=== PATIENT | female | born 1995 | race Caucasian/White ===

== ENCOUNTER 2018-03-21 08:47 | Inpatient (IN) | payer BC, OTHER ==
[~2018-03-21] VITALS: Ht 167.6 cm; Wt 56.7 kg
[2018-03-21] MEDS ORDERED: DICYCLOMINE HCL 20 MG TABLET PO PRN (11:30)
[2018-03-21] MEDS ORDERED: ONDANSETRON ODT 4 MG TAB.RAPDIS SL PRN (11:30)
[2018-03-21] MEDS ORDERED: MIRALAX 17 GM POWD.PACK PO PRN (11:30)
[2018-03-21] MEDS ORDERED: METHOCARBAMOL 750 MG TABLET PO PRN (11:30)
[2018-03-21] MEDS ORDERED: LOPERAMIDE HCL 2 MG CAPSULE PO PRN ×2 (11:30)
[2018-03-21] MEDS ORDERED: MAG HYDROX/AL HYDROX/SIMETH 30 ML LIQUID UDC PO PRN (11:30)
[2018-03-21] MEDS ORDERED: ONDANSETRON 4 MG/2 ML VIAL IM PRN (11:30)
[2018-03-21] MEDS ORDERED: ACETAMINOPHEN 325 MG TABLET PO PRN (11:30)
[2018-03-21] MEDS ORDERED: BUPRENORPHINE HCL 2 MG TAB.SUBL SL PRN (11:30)
[2018-03-21] MEDS ORDERED: CLONIDINE HCL 0.1 MG TABLET PO PRN (11:30)
[2018-03-21 12:31] LABS: *URINE HCG, QUAL NEGATIVE (NEGATIVE)
[2018-03-21 12:45] LABS: ALANINE AMINOTRANSFERASE 17 U/L (14-59); ALKALINE PHOSPHATASE 93 U/L (50-136); ASPARTATE AMINOTRANSFERASE 15 U/L (15-37); BILIRUBIN,TOTAL 0.4 mg/dL (0.2-1.0); CARBON DIOXIDE 30 mmol/L (21-32); CHLORIDE 103 mmol/L (98-107); CREATININE 0.8 mg/dL (0.6-1.3); GLUCOSE 72 mg/dL (74-106); MAGNESIUM 1.8 mg/dL (1.8-2.4); POTASSIUM 3.7 mmol/L (3.5-5.1); TOTAL PROTEIN, SERUM 7.3 g/dL (6.4-8.2); UREA NITROGEN, BLOOD 8 mg/dL (7-18)
[2018-03-21 12:49] LABS: BASOPHILS # (AUTO) 0.1 K/uL (0.0-8.0); BASOPHILS % (AUTO) 0.9 % (0.0-2.0); EOSINOPHILS # (AUTO) 0.6 K/uL (0.0-0.7); EOSINOPHILS % (AUTO) 9.4 % (0.0-7.0); HEMATOCRIT 39.8 % (31.2-41.9); HEMOGLOBIN 12.9 g/dL (10.9-14.3); LYMPHOCYTES # (AUTO) 1.8 K/uL (20.0-40.0); MEAN CORPUSCULAR HEMOGLOBIN 26.9 uug (24.7-32.8); MEAN CORPUSCULAR HGB CONC 32 g/dL (32.3-35.6); MEAN CORPUSCULAR VOLUME 82.8 fL (75.5-95.3); MONOCYTES # (AUTO) 0.6 K/uL (2.0-10.0); MONOCYTES % (AUTO) 9.9 % (0.0-11.0); NEUTROPHILS % (AUTO) 49.8 % (38.5-71.5); PLATELET COUNT (AUTO) 324 K/uL (179-408); WHITE BLOOD COUNT (AUTO) 5.9 K/uL (3.8-11.8)
[2018-03-21 12:52] LABS: THYROID STIMULATING HORMONE 1.226 mIU/mL (0.358-3.740)
[2018-03-21 12:56] LABS: *AMPHETAMINE, URINE POSITIVE (NEGATIVE); *BARBITURATE, URINE NEGATIVE (NEGATIVE); *CANNABINOID, URINE NEGATIVE (NEGATIVE); *COCCAINE, URINE NEGATIVE (NEGATIVE); *OPIATE, URINE POSITIVE (NEGATIVE); *PHENCYCLIDINE SCREEN,URINE NEGATIVE (NEGATIVE)
[2018-03-21 13:20] LABS: ETHANOL < 3 MG/DL (0-0)
[2018-03-21] MEDS ORDERED: LORAZEPAM 1 MG TABLET PO PRN ×2 (14:30)
[2018-03-21] MEDS ORDERED: LORAZEPAM 2 MG/1 ML VIAL IM PRN (14:30)
--- NOTE | 2018-03-21 15:00 | NUR ---
ADMISSION NOTE Pt is a 22 year old transgender female who identifies as a male , admitted on 03/21/2018 at 1230 for Benzo, Opiate and meth Dependence and medically supervised withdrawals. Pts skin and body check completed, no contraband found, pt has multiple acne on face and body pt has a laceration on right thigh 6cm picture taken and placed in chart wound consult evaluation ordered. Multiple self inflicted lacerations on arms, Pt states he inflicts the lacerations to deal with and due to anxiety 2 weeks ago, pt denies attempting suicide and currently denies any suicidal ideations or thoughts of self harm. Pt awake, alert, oriented x 4, gait steady, pt is ambulatory without assistance. Pt weights 125 pounds and his height is 56. Denies any history of seizures. Pt escorted to room 307 where the rest of assessment was completed. Pt is primary source of information, information consistent, speech coherent. Pt brought testosterone injection medication from home with 5 syringes and needles for the injection. Pt refused PNA and influenza Vaccinations stating that he will receive it somewhere else. Pt states that he has a PCP by the name of . Pt requested to be full code, regular diet on fall and seizure precautions, Pt states that he is allergic to PCN. His last BM was on 03/21/2018. Pt states that he lives in a house with his mother. Pt stated that he smokes 5 cigarettes a day. Pt denies being admitted to a hospital in the past 30 days, Pt is not a candidate for MRSA. Pts initial vital signs are BP: 132/79, Temp: 98.5, Pulse: 85 SPO2: 98% RR:18 and states that he has 0/10 pain. Pts initial CIWA was a 10 COWS 10. Pt reports PMH of Anxiety and Depression. Pts longest sobriety lasted 1.5 years which was from [id number]. Pt stated that he does not attend AA meetings. Pt denies any suicidal or homicidal ideations. Substance use Hx: 1. Heroin (smoking) Pt stated he first used heroin at the age of 15 y/o. Pt reports taking 0.5 grams daily for the past 2 weeks by smoking. Last used 2 days ago 2. Xanax: Pt reported first taking Xanax in the year at age 15. Pt reports taking up to 1mg of Xanax daily for the past 2 weeks. He last took Xanax a day ago. 3. Meth: Pt stated he first used Meth at the age of 18 y/o. Pt reports taking 0.5 grams daily for the past 2 weeks by smoking. Last used 2 days ago Pt cooperative, appears fidgety, reports moderate anxiety. Educated on relaxation techniques (deep breathing) pt verbalized understanding. Pt denies SI/HI at this time, denies hallucinations. Skin warm and moist from sweat, color pink, consistent throughout the body. Eyes PEERLLA, tremors noted and felt. All extremities with full ROM. Lung sounds clear bilaterally, no cough present, pt denies SOB. Heart rate regular. Cap refill <3 sec. No edema noted. Abdomen soft, round, bowel sounds active x 4, non tender. Pt denies urinary difficulties, urine was provided and sent to lab. Pt oriented to unit, room, equipment, shown how to use call light, provided returned demonstration. Fall precautions in place. Side rails up x2, call light within reach, bed locked in low position. MD contacted and aware of patients condition. All admitting orders have been placed.
[2018-03-21 16:00] VITALS: BP 113/73
--- NOTE | 2018-03-21 16:50 | NUR ---
PRN MEDICATIONS Pt c/o Anxiety presented with agitation and restlessness requested something for relief, non-pharmacological techniques interventions provided x3 and were not effective. Pt's COWS 18 CIWA 17 PRN Ativan 2mg PO and Subutex 4mg Sublingual administered educated pt about s/e of medication and when to contact nurse. all needs met, all safety measures in place, will continue to monitor.
[2018-03-21] MEDS ORDERED: TEST200V3 IM (17:07)
[2018-03-21] MEDS ORDERED: ACET-73 PO (17:07)
[2018-03-21] MEDS ORDERED: Melatonin PO (17:07)
--- NOTE | 2018-03-21 17:50 | NUR ---
PRN REASSESSMENT Medication effective pt reported feeling "Much better" pt also stated "Now i can lay down and sleep a little after taking the medication pt educated to contact nurse in case withdrawals return, and if pt experiences any adverse effects of the medication, all needs met will continue to monitor patient
--- NOTE | 2018-03-21 19:21 | NUR ---
End Of Shift 304 Report given to slot shift supervisor nurse, plan of care reviewed, Vital signs monitored Q hours. Withdrawal symptoms were closely monitored. Initial CIWA 10 COWS 10 upon admission. Patient encouraged adequate PO fluid intake as tolerated. Patient presented with tremors sweats, irritability, flushed face and anxiety during the day. Pt received PRN Ativan 2mg and Subutex 4mg . Last CIWA 17 COWS 18. Pt is on PRN medications. Per patient Subutex and Ativan has been helping her with her withdrawal symptoms. Pt ate all of her meals. Patient encouraged to attend all group therapies/sessions to learn new coping skills to recent relapse, patient denies SI/HI. All safety measures in place, bed in lowest locked position, call light within reach. All needs met and attended.
[2018-03-21 20:00] VITALS: BP 114/70
--- NOTE | 2018-03-21 20:00 | NUR ---
Start of Shift Pt is a 22 year old transgender female who identifies as a male, admitted for Opiate/Benzo withdrawal. Upon assessment, pt presents in room, in bed with lights off, and television off. Pt has limited snacks on bedside table. Pt has poor eye contact, appears worried with flat affect. While completing assessment, pt warms up to conversation and begins to smile. Pt reports decreasing body aches, skins is noted to be flushed with reports of nasal stuffiness. Safety measures in place, will continue to monitor.
[2018-03-21] MEDS: SERTRALINE HCL 50 MG TABLET PO SCH (20:16)
[2018-03-22] VITALS: BP 112/63
--- NOTE | 2018-03-22 | NUR ---
COWS/CIWA Deferred - pt is noted to be sleeping, eyes closed respirations even/unlabored. CIWA/COWS assessment deferred d/t pt sleeping - to assess while pt is awake as ordered. BP 112/63, pulse 78, resp 17, spo2 97%, temp 98.[address], will continue to monitor
[2018-03-22 04:00] VITALS: BP 109/63
--- NOTE | 2018-03-22 04:00 | NUR ---
COWS/CIWA Deferred - pt is noted to be sleeping, eyes closed respirations even/unlabored. CIWA/COWS assessment deferred d/t pt sleeping - to assess while pt is awake as ordered. BP 109/63, pulse 62, resp 17, spo2 98%, temp 98.1, Safety measures in place, will continue to monitor
[2018-03-22 06:07] LABS: HEPATITIS B SURFACE AG Negative (Negative)
--- NOTE | 2018-03-22 07:00 | NUR ---
End of Shift Pt is a 22 year old transgender female who identifies as a male, admitted for Opiate/Benzo withdrawal. During shift, pt remained in room, in bed with lights off, and television off. Pt read the books that were present at bedside. Pt has limited snacks on bedside table. Pt has poor eye contact, however warms up to conversations. Pt reported decreasing body aches, skins is noted to be flushed with reports of nasal stuffiness. COWS 9 and CIWA 9 pt offered Ativan and Subutex, however pt refused, states, "I don't need it now. I feel better for tonight". Pt educated regarding benefits of medications, pt verbalized understand. Pt denies SI/HI, Pt slept for 5 hours, intake of 600 ml PO, voids x1. Safety measures in place, Endorsed to day shift nurse.
--- NOTE | 2018-03-22 07:30 | NUR ---
START OF SHIFT Pt is a 22 yr old transgender male, Pt was admitted on 03/21/18 for Opiate and Benzo withdrawal and is on PRN for s/s of w/d. Received report from car shifter nurse. No PRN's were given during the night. Pt slept for 5 hrs. Last COWS score was 9 and CIWA score was 9 during the night. Pt is currently in bed sleeping with respirations even and unlabored. Skin is warm and dry to touch. Pt is on fall and seizure precautions. Safety precautions observed. Call light is within reach. Will continue to monitor.
[2018-03-22 08:00] VITALS: BP 104/53
--- NOTE | 2018-03-22 08:00 | NUR ---
CIWA AND COWS SCORE DEFERRED Pt is currently in bed sleeping with respirations even and unlabored. COWS and CIWA is deferred at this time. Will continue to monitor.
[2018-03-22] MEDS ORDERED: TUBERCULIN,PURIF.PROT.DERIV. 5 TU/0.1 ML TEST ID ONE (09:00)
[2018-03-22 12:00] VITALS: BP 104/52
--- NOTE | 2018-03-22 13:52 | NUR ---
PRN GIVEN Pt is c/o headache, anxiety and nausea. Pt is observed with restless legs. CIWA assessment complete with a score of 11. Ativan 1mg PO PRN was given as ordered. Encouraged increase fluid intake. Will continue to monitor.
[2018-03-22] MEDS ORDERED: BUPRENORPHINE HCL 2 MG TAB.SUBL SL PRN ×2 (14:00)
--- NOTE | 2018-03-22 14:20 | NUR ---
PRN GIVEN Pt c/o anxiety, agitation, chills, nausea, abdominal cramping and muscle aches. pt is observed with restless legs. COWS score was 13. Subutex 4mg SL PRN was given for s/s of w/d. medication was tj well. Encouraged increase fluid intake. Will continue to monitor.
--- NOTE | 2018-03-22 15:00 | NUR ---
PRN RE-ASSESSMENT Subutex 4mg SL PRN and Ativan 1mg PO PRN was effective. Pt denied any headache or nausea. Pt continue to be observed with anxiety m/b difficulty staying still. COWS score was 8 and CIWA score was 5. Encoruaged increase fluid intake. Will continue to monitor.
[2018-03-22 16:00] VITALS: BP 105/64
--- NOTE | 2018-03-22 19:08 | NUR ---
END OF SHIFT Pt is a 22 yr old transgender male, AA&Ox4. Pt was admitted on 03/21/18 for Opiate and Benzo withdrawal and is on PRNs for s/s of w/d. Pt has been noted with increase fatigue and remained in the room throughout the day. Pt refused to attend group. Pt c/o increase anxiety, agitation, abdominal cramping, nausea, loss of appetite, muscle aching and headache during the day and was given Subutex 4mg SL PRN and Ativan 1mg PO PRN for COWS of 13 and CIWA of 11. Medication was effective. Last COWS score was 6 and CIWA score was 5 at 1600. Pt was encouraged increase fluid intake for hydration. Safety precautions observed. Call light is within reach. Endorsed to semiconductor packages leak tester nurse to continue to monitor.
--- NOTE | 2018-03-22 19:15 | NUR ---
Start of Shift Note: Received patient in bed awake, alert & oriented x4. Patient is a 22 y.o male admitted for medically supervised withdrawal from Heroin & Xanax use. He has a flat affect, anxious and depressed mood. Patient presented with moist/clammy skin, stomach cramps, fine tremors, & he reports moderate headache. Patient currently has no taper and has PRN's available to manage s/s of withdrawal. Pt received PRN Subutex 4mg & Ativan 1mg @ 1330 and was effective per report. Last COWS 6 CIWA 5. Continue to encourage pt to increase fluid intake as tolerated. Will continue to encourage participation in group therapy to prevent relapse. Educated patient of current plan of care for the night and medication regimen. Safety precaution in place. Bed locked in lowest position. Both side rails up. Call light within pt's reach. Will continue to monitor patient.
[2018-03-22 20:00] VITALS: BP 116/66
[2018-03-22] MEDS: IBUPROFEN 600 MG TABLET PO PRN (20:56)
[2018-03-22] MEDS: GABAPENTIN 300 MG CAPSULE PO SCH (20:56)
[2018-03-22] MEDS: SERTRALINE HCL 50 MG TABLET PO SCH (20:56)
[2018-03-22] MEDS: CLONIDINE HCL 0.1 MG TABLET PO SCH (20:56)
--- NOTE | 2018-03-22 20:56 | NUR ---
PRN Motrin Patient complained of 5/10 headache. PRN Motrin administered as ordered. Will monitor for effectiveness of medication.
--- NOTE | 2018-03-22 21:56 | NUR ---
PRN Reassessment PRN medication effective. Pt verbalized decreased in headache from 5/10 to 2/10 after medication administration. Patient in bed and appears comfortable. Will continue to monitor patient.
--- NOTE | 2018-03-23 07:23 | NUR ---
End of Shift Note: Continue to closely monitor patient. Patient still asleep at this time. Pt remains alert & oriented x4. Patient remained in his room most of the night and noted to be isolative and withdrawn. He presented with moist/clammy skin, anxiety, stomach cramps, fine tremors & moderate headache. He was medicated with Motrin for headache and was effective. He has no ongoing taper and has PRN's available to manage s/s of withdrawal. Last COWS is 6 CIWA 9. Pt remains compliant with medications, treatment and diet regimen. Continue to encourage pt to socialize with other patients and to increase activity. Encourage to increase fluid intake as well as tolerated. Vitals were monitored and noted WNL. Non pharmacological intervention utilized. Pt slept intermittently for a total of 7 hours. Fluid intake: 355 ml, Voided 2x with no bowel movement. All needs attended & met. Safety measures in place. Will endorse pt to day shift nurse.
--- NOTE | 2018-03-23 07:45 | NUR ---
START OF SHIFT PT IS A 22 Y/O M ADMITTED ON 03/21/18 FOR MEDICALLY SUPERVISED XANAX, HEROIN, AND METH WITHDRAWALS. PT HAS PRN SUBUTEX AND ATIVAN FOR MANAGEMENT OF WIITHDRAWALS. LAST COWS 6 AND CIWA 9. PT IS LAYING IN BED WITH EYES CLOSED SLEEPING, RESPIRATIONS EVEN AND UNLABORED. PT HAS BEEN SLEEPING FOR 7 HRS AND HAS BEEN GIVEN IBUPROFEN PRN FOR HEADACHE. SIDE RAILS UPX2, BED IN LOW POSITION. CALL LIGHT WITHIN REACH. SAFETY MEASURES IN PLACE. WILL CONTINUE TO MONITOR.
[2018-03-23 08:00] VITALS: BP 97/61
[2018-03-23] MEDS: GABAPENTIN 300 MG CAPSULE PO SCH ×2 (09:46→20:21)
--- NOTE | 2018-03-23 09:46 | NUR ---
PRN ROBAXIN 750 MG PO PRN GIVEN. PT IS IN BED, WITH ONE ARM OVER THE FACE, POOR EYE CONTACT, C/O GENERALIZED BODY ACHES 04/17. REFUSED TO HAVE OTHER PRN MEDS AT THIS TIME.
[2018-03-23] MEDS: CLONIDINE HCL 0.1 MG TABLET PO SCH ×2 (09:49→20:27)
--- NOTE | 2018-03-23 10:46 | NUR ---
REASSESSMENT PT IS LAYING IN BED WITH EYES CLOSED AND SLEEPING. SAFETY MEASURES IN PLACE. WILL CONTINUE TO MONITOR.
[2018-03-23 12:00] VITALS: BP 90/46
[2018-03-23] MEDS ORDERED: LORAZEPAM 1 MG TABLET PO PRN ×2 (14:15)
[2018-03-23] MEDS ORDERED: BUPRENORPHINE HCL 2 MG TAB.SUBL SL PRN ×2 (14:15)
[2018-03-23 16:00] VITALS: BP 87/57
--- NOTE | 2018-03-23 19:15 | NUR ---
Start of Shift Note: Received patient in bed awake, alert & oriented x4. Patient is a 22 y.o male, admitted for medically supervised withdrawal from Heroin & Xanax use. He has a flat affect, speech is soft, evasive and has poor eye contact. Patient presented with anxiety, moist/clammy skin, chills, & fine tremors,. Patient currently has no taper and has PRN's available to manage s/s of withdrawal. Pt received PRN Robaxin for body aches during day shift and was effective per report. Last COWS 8 CIWA 10. Patient remains isolative in his room during the day. Continue to encourage pt to socialize with other patients and to increase fluid intake as tolerated. Will continue to encourage participation in group therapy to prevent relapse. Educated patient of current plan of care for the night and medication regimen. Safety precaution in place. Bed locked in lowest position. Both side rails up. Call light within pt's reach. Will continue to monitor patient.
--- NOTE | 2018-03-23 19:50 | NUR ---
END OF SHIFT PT HAS BEEN ISOLATIVE IN ROOM AND WITHDRAWN DURING SHIFT. PT SLEPT IN MOST OF THE DAY. PT HAS BEEN GIVEN ROBAXIN 750 MG PO PRN AND TOLERATED WELL. PT HAS REFUSED OTHER COMFORT MEDS DURING SHIFT. ENCOURAGED PT TO INCREASE CONSUMPTION OF FLUIDS TOLERATED TO PROMOTE HYDRATION. LAST COWS 8 AND CIWA 10. FLUID INTAKE 850 ML, VOIDED X5, BM 0. SAFETY MEASURES IN PLACE. ENDORSEMENT GIVEN TO WEBSITE ADMIN NURSE.
[2018-03-23 20:00] VITALS: BP 92/56
[2018-03-23] MEDS: SERTRALINE HCL 50 MG TABLET PO SCH (20:21)
--- NOTE | 2018-03-23 20:21 | NUR ---
PRN Ativan Patient presented with restlessness, anxiety, irritability, clammy skin & fine tremors. CIWA 8 noted at this time. PRN Ativan 1mg administered as ordered. Safety measures in place. Will monitor for effectiveness of medications.
--- NOTE | 2018-03-23 21:21 | NUR ---
PRN Reassessment Patient in bed and verbalized decreased in anxiety & agitation. Patient in bed and appears calm & comfortable at this time. No complaints of pain at this time. Safety measures in place. Will continue to monitor patient.
--- NOTE | 2018-03-23 21:31 | NUR ---
PRN Toradol & Phenergan Patient complained of nausea, 8/10 generalized body aches & moderately severe headache. Patient is restless in bed with facial grimacing noted. PRN Phenergan PO and TOradol IM administered at left deltoid as ordered. Pt tolerated medications well. Safety measures in place. Will monitor effectiveness of medications. Addendum: 03/24/18 at 0327 by KIA FULLER RN DISREGARD NOTE: WRONG PATIENT
--- NOTE | 2018-03-24 | NUR ---
Vitals/COWS/CIWA Deferred Patient in bed with eyes close. Patient refused vitals at this time. Vitals/COWS/CIWA deferred to assess if pt is awake as ordered. Respiration even & unlabored at this time. Safety measures in place. Will continue to monitor patient.
--- NOTE | 2018-03-24 04:00 | NUR ---
Vitals/COWS/CIWA Deferred Patient remained asleep in bed. Patient refused vitals at this time. Vitals/COWS/CIWA deferred to assess if pt is awake as ordered. Respiration even & unlabored at this time. Safety measures in place. Will continue to monitor patient.
--- NOTE | 2018-03-24 07:14 | NUR ---
End of Shift Note: Continue to closely monitor patient. Pt remained isolative and withdrawn in his room throughout the shift. He continues to present with a flat affect, anxious & depressed mood, he complained of anxiety, sweating & intermittent chills during my shift. He was medicated with PRN Ativan 1mg for a CIWA of 8 and was effective. He has no ongoing taper and has PRN's available to manage s/s of withdrawal. Continue to encourage pt to socialize with other patients and to increase activity. Encourage to increase fluid intake for hydration. Vitals were monitored and noted WNL. Non pharmacological intervention utilized. Pt slept intermittently for a total of 5 hours. Fluid intake: 1000 ml, Voided 4x with no bowel movement. All needs attended & met. Safety measures in place. Will endorse pt to day shift nurse.
--- NOTE | 2018-03-24 07:30 | NUR ---
START OF SHIFT Pt 22 y/o female transgendering male admitted for opiate/ meth/ benzo withdrawal. Pt received in room on bed with eyes closed resting, but easily arousable to name. Pt alert and oriented to name, place, and time. [place]. Skin warm and dry to touch. Respirations even and unlabored. Bilateral hand tremors noted. Pt appears disheveled. Clothes and food wrapping scattered throughout the room. Encouraged to maintain hygiene. Pt appears with flat affect. It was reported that pt slept for 5 hours last night. Pt is on a prn ativan and also prn subutex. Bed on lowest position with side rails x2 up for safety. Call light within reach.
[2018-03-24 08:00] VITALS: BP 96/46
[2018-03-24] MEDS: GABAPENTIN 300 MG CAPSULE PO SCH ×2 (08:29→20:21)
[2018-03-24] MEDS: CLONIDINE HCL 0.1 MG TABLET PO SCH ×2 (08:55→20:58)
[2018-03-24 12:00] VITALS: BP 89/47
[2018-03-24] MEDS ORDERED: METH-406 PO (15:53)
[2018-03-24] MEDS ORDERED: DIPH50CA37 PO (15:53)
[2018-03-24] MEDS ORDERED: DICY20TA28 PO (15:53)
[2018-03-24] MEDS ORDERED: HYDR-3895 PO (15:53)
[2018-03-24] MEDS ORDERED: CLON0.1T14 PO (15:53)
[2018-03-24] MEDS ORDERED: GABA-534 PO (15:53)
[2018-03-24] MEDS ORDERED: IBUP-1955 PO (15:53)
[2018-03-24] MEDS ORDERED: SERT50TA12 PO (15:53)
[2018-03-24 16:00] VITALS: BP 101/59
--- NOTE | 2018-03-24 18:38 | NUR ---
END OF SHIFT Pt 22 y/o female transgendering male admitted for opiate/ meth/ benzo withdrawal. Pt alert and oriented to name, place, and time. [place]. Skin warm and moist to touch. Respirations even and unlabored. Pt appear disheveled with flat affect. Clothes scattered throughout the room. Pt with low motivation for self care and minimal peer interaction. Encouraged to maintain hygiene. Pt observed isolative to room throughout the room. Pt did not attend group activity. Pt was seen by MD today. Pt medication compliant and tolerated well. No ASE noted. Pt is on prn ativan and prn subutex. Cows= 6@0800, 6 @1200, and 6@1600. Ciwas=6@0800, 6@1200, and 6@1600. Bed on lowest position with side rails x2 up for safety. Call light within reach.
--- NOTE | 2018-03-24 19:15 | NUR ---
Start of Shift Note: Received patient from day shift nurse. He is alert & oriented x4. He remains isolative and withdrawn in his room throughout the day. He continues to present with a flat affect, speech is soft, evasive, anxious and has poor eye contact. Patient currently has no taper and has PRN's available to manage s/s of withdrawal. No PRN medications received during day shift. Last COWS 6 CIWA 6. Continue to encourage pt to socialize with other patients and to increase fluid intake as tolerated. He did not attend groups today. Will continue to encourage participation in group therapy to prevent relapse. Educated patient of current plan of care for the night and medication regimen. Safety precaution in place. Bed locked in lowest position. Both side rails up. Call light within pt's reach. Will continue to monitor patient.
[2018-03-24 20:00] VITALS: BP 89/53
[2018-03-24] MEDS: HYDROXYZINE PAMOATE 25 MG CAPSULE PO PRN (20:21)
[2018-03-24] MEDS: SERTRALINE HCL 50 MG TABLET PO SCH (20:21)
--- NOTE | 2018-03-24 20:21 | NUR ---
PRN Vistaril Patient complains of anxiety. PRN Vistaril administered as ordered. Will monitor for effectiveness of medication.
--- NOTE | 2018-03-24 21:21 | NUR ---
PRN Reassessment PRN medication effective. Patient verbalized decreased in anxiety. Pt in bed and appears calm & comforatablel. Safety measures in place. Will continue to monitor.
[2018-03-24] MEDS: IBUPROFEN 600 MG TABLET PO PRN (21:28)
[2018-03-24] MEDS: diphenhydrAMINE 50 MG CAPSULE PO PRN (21:34)
--- NOTE | 2018-03-24 21:34 | NUR ---
PRN Motrin & Benadryl Patient complained of 5/10 menstrual cramping. Pt requesting medication to help her sleep. PRN Motrin & Benadryl administered as ordered. will monitor for effectiveness of medication.
--- NOTE | 2018-03-24 22:34 | NUR ---
PRN Reassessment Pt still awake at this time and appears comfortable in bed. Pt verbalized relief from abdominal cramping after 1 hour of medication administration. Safety measures in place. will continue to monitor patient.
--- NOTE | 2018-03-25 | NUR ---
Vitals/COWS/CIWA Deferred Patient in bed with eyes close. Patient requested not to be woken up for vitals at this time. Respiration even & unlabored. Vitals/COWS/CIWA deferred to assess if pt is awake as ordered. Safety measures in place. Will continue to monitor patient.
--- NOTE | 2018-03-25 04:00 | NUR ---
Vitals/COWS/CIWA Deferred Patient in bed with eyes close. Patient requested not to be woken up for vitals at this time. Respiration even & unlabored. RR 16. Vitals/COWS/CIWA deferred to assess if pt is awake as ordered. Safety measures in place. Will continue to monitor patient.
--- NOTE | 2018-03-25 07:02 | NUR ---
End of Shift Note: Pt still asleep at this time. Pt remains alert & oriented x4. He remained isolative and withdrawn in his room throughout the shift. He continues to present with a flat affect, anxious & depressed mood, he complained of anxiety, abdominal cramping & insomnia during my shift. He was medicated with Vistaril, Motrin & Benadryl during my shift and were effective. Last COWS 5 CIWA 5. He has no ongoing taper and has PRN's available to manage s/s of withdrawal. Continue to encourage pt to socialize with other patients and to increase activity. Encourage to increase fluid intake for hydration. Vitals were monitored and noted WNL. Non pharmacological intervention utilized. Pt slept intermittently for a total of 8 hours. Fluid intake: 800 ml, Voided 2x with 1x bowel movement. All needs attended & met. Safety measures in place. Will endorse pt to day shift nurse.
--- NOTE | 2018-03-25 07:30 | NUR ---
START OF SHIFT Pt is a 22 yr old transgender male, Pt was admitted on 03/21/18 for Opiate and Benzo withdrawal and is on PRN for s/s of w/d. Received report from night auditor nurse. Pt received Benadryl PRN, Motrin PRN and Vistaril PRN during the night. Medication was effective. Pt slept for 8 hrs. Last COWS score was 5 and CIWA score was 5 during the night. Pt is currently in bed sleeping with respirations even and unlabored. Skin is warm and dry to touch. Pt is on fall and seizure precautions. Safety precautions observed. Call light is within reach. Will continue to monitor.
[2018-03-25 08:00] VITALS: BP 91/52
[2018-03-25] MEDS: CLONIDINE HCL 0.1 MG TABLET PO SCH ×2 (09:00→21:00)
[2018-03-25] MEDS: GABAPENTIN 300 MG CAPSULE PO SCH ×2 (09:54→21:37)
[2018-03-25 12:00] VITALS: BP 107/58
[2018-03-25 16:00] VITALS: BP 91/52
--- NOTE | 2018-03-25 19:04 | NUR ---
END OF SHIFT Pt is a 22 yr old transgender male, AA&Ox4. Pt was admitted on 03/21/18 for Opiate and Benzo withdrawal and is on PRNs for s/s of w/d. Pt was encouraged to attend group and shower during the day but pt refused to shower or attend group. Pt remained in the room throughout the day and was noted with increase fatigue. Pt is noted with flat affect and disheveled appearances. Skin is warm and moist to touch. No PRN were given during the day. Last COWS score was 4 and CIWA score was 4 at 1600. Pt was encouraged increase fluid intake for hydration. Pt is to be discharged tomorrow on 03/26/18 to [facility]. Pt states of having anxiety in regards to discharged but is able to cope with anxiety level. Safety precautions observed. Call light is within reach. Endorsed to night warehouse selector nurse to continue with care.
--- NOTE | 2018-03-25 19:30 | NUR ---
START OF SHIFT Pt is a 22 y/o female, who identifies as a male, admitted on 03/21/18 for benzo, opiate and meth withdrawal. Pt is scheduled to be d/c tomorrow, tolerated PRN Ativan and Subutex well. Last COWS 4 and CIWA 4 and no PRNs administered. Upon assessment pt presents with anxiety, restlessness, difficulty sleeping, flat affect, agitation and is withdrawn. Medications due. Safety measures in place. Call light within reach. Will continue to monitor.
[2018-03-25 20:00] VITALS: BP 101/46
[2018-03-25] MEDS: diphenhydrAMINE 50 MG CAPSULE PO PRN (21:37)
[2018-03-25] MEDS: SERTRALINE HCL 50 MG TABLET PO SCH (21:37)
--- NOTE | 2018-03-25 21:37 | NUR ---
PRN BENADRYL ADMINISTRATION Pt requests sleep aid. Safety measures in place. Call light within reach. Will continue to monitor.
--- NOTE | 2018-03-25 22:37 | NUR ---
PRN BENADRYL REASSESSMENT Pt laying in bed with eyes closed, medication noted effective. Safety measures in place. Call light within reach. Will continue to monitor.
[2018-03-26] VITALS: BP_SYST 104; BP_SYST 117; BP_DIAS 43; BP_DIAS 53
--- NOTE | 2018-03-26 | NUR ---
COWS/CIWA DEFERRED Pt laying in bed with eyes closed, COWS/CIWA deferred, to be assessed when pt is awake per orders. Respirations even and unlabored. Safety measures in place. Call light within reach. Will continue to monitor.
--- NOTE | 2018-03-26 04:00 | NUR ---
COWS/CIWA DEFERRED AND VITALS REFUSED Pt laying in bed with eyes closed, COWS/CIWA deferred, to be assessed when pt is awake per orders. Vitals refused. Respirations even and unlabored. Safety measures in place. Call light within reach. Will continue to monitor.
--- NOTE | 2018-03-26 07:11 | NUR ---
END OF SHIFT Pt is a 32 y/o female admitted on 03/22/18 for ETOH, benzo and opiate withdrawal. Pt is on a 5 day Ativan and Subutex taper, tolerating well. Pt presented with anxiety, agitation, difficulty thinking clearly, difficulty concentrating, flushed skin, sweats, chills, stomach cramps, nausea without vomiting, restlessness, difficulty falling asleep and staying asleep, body aches, headache, constipation, photosensitivity, irritability, disheveled appearance, and unkempt room. Pt is refusing side rail padding, educated risks and pt verbalized understanding. Pt verbalized feelings of AMA during shift r/t difficulty coping with negative emotions and cravings. Scheduled medications and PRN Robaxin, Zofran odt, Milk of Magnesium and Motrin administered, effective in S/S of withdrawal AEB COWS 14 and CIWA 23 lowered to COWS 13 and CIWA 16 during shift. Pt slept 6 hours. Intake 973 ml, void x 2, stool x 0. Safety measures in place. Call light within reach. Pts needs have been met. Endorsed to day shift nurse. Addendum: 03/26/18 at 0712 by JUDY GARRETT RN WRONG PATIENT Pt is a 22 y/o female, who identifies as a male, admitted on 03/21/18 for benzo, opiate and meth withdrawal. Pt is scheduled to be d/c today. Pt presented with anxiety, restlessness, difficulty sleeping, flat affect, agitation and was withdrawn. Scheduled medications and PRN Benadryl administered, effective in S/S of withdrawal as verbalized by pt. Last COWS 5 and CIWA 8. Pt slept 9 hours. Intake 1254 ml, void x 3, stool x 0. Safety measures in place. Call light within reach. Pts needs have been met. Endorsed to day shift nurse.
--- NOTE | 2018-03-26 07:34 | NUR ---
START OF SHIFT PT IS A 22 Y/O IDENTIFYING A M, ADMITTED ON 03/21/18 FOR MEDICALLY SUPERVISED XANAX, HEROIN, AND METH WITHDRAWALS. PT IS MEDICALLY CLEARED TO BE DISCHARGED TODAY. LAST COWS 5 AND CIWA 8. PT IS LAYING IN BED WITH EYES CLOSED SLEEPING, RESPIRATIONS EVEN AND UNLABORED. PT HAS BEEN SLEEPING FOR 9 HRS AND HAS BEEN GIVEN BENADRYL PRN FOR SLEEP. SIDE RAILS UPX2, BED IN LOW POSITION. CALL LIGHT WITHIN REACH. SAFETY MEASURES IN PLACE. WILL CONTINUE TO MONITOR.
[2018-03-26 08:00] VITALS: BP 98/60
[2018-03-26] MEDS: CLONIDINE HCL 0.1 MG TABLET PO SCH (08:40)
[2018-03-26] MEDS: GABAPENTIN 300 MG CAPSULE PO SCH (08:40)
[2018-03-26] MEDS: HYDROXYZINE PAMOATE 25 MG CAPSULE PO PRN (08:40)
--- NOTE | 2018-03-26 08:40 | NUR ---
PRN VISTARIL 25 MG PO PRN GIVEN FOR C/O ANXIETY 03/18; PT REPORTS FEELING ANXIOUS ABOUT DISCHARGE AND GOING TO A NEW TREATMENT CENTER. WILL MONITOR AND REASSESS.
--- NOTE | 2018-03-26 09:30 | NUR ---
REASSESSMENT PT STATES VISTARIL DECREASED HIS ANXIETY AND APPEARS MUCH CALMER.
--- NOTE | 2018-03-26 09:35 | NUR ---
DISCHARGE NOTE PT IS IN STABLE CONDITION, VS WNL. PT HAS BEEN GIVEN D/C INSTRUCTIONS AND VERBALIZED UNDERSTANDING. LAST COWS 5 AND CIWA 7. AWARE OF PT D/C. PT HAS BEEN DISCHARGED AT 0935 ON 03/26/18 WITH ALL BELONGINGS, PRESCRIPTIONS, AND D/C PAPERWORK. PT HAS BEEN PICKED UP BY [facility] AND HAS BEEN TAKEN TO [facility].
== END 2018-03-26 09:35 | DRG 895 ==
LOC: SRC 11:25
PROVIDERS: ADMIT Internal Medicine; ATTEND Internal Medicine
PROC: HZ2ZZZZ Detoxification Services for Substance Abuse Treatment (ICD-10-PCS; principal; 2018-03-21)
PROC: HZ51ZZZ Individual Psychotherapy for Substance Abuse Treatment, Behavioral (ICD-10-PCS; 2018-03-22)
DX: F11.23 Opioid dependence with withdrawal (principal); F15.23 Other stimulant dependence with withdrawal; F13.230 Sedative, hypnotic or anxiolytic dependence with withdrawal, uncomplicated; Z81.1 Family history of alcohol abuse and dependence; F17.210 Nicotine dependence, cigarettes, uncomplicated; F64.9 Gender identity disorder, unspecified; F32.9 Major depressive disorder, single episode, unspecified; F41.9 Anxiety disorder, unspecified; E16.2 Hypoglycemia, unspecified
CPT/HCPCS: 36415; 80307; 80324; 80346; 80361; 83735; 84443; 84703; 85025; 86580; 86592; 86705; 86803; 87340; 87806; A4663; G0480; Q0163